=== PATIENT | male | born 1985 | race Caucasian/White ===

== ENCOUNTER 2019-12-04 17:10 | Emergency (ER) | payer OTHER ==
[2019-12-04] MEDS ORDERED: PROPARACAINE 0.5% OPHTH DROPS 15 ML BTL LEFT EYE STA (19:16)
[2019-12-04] MEDS ORDERED: ERYTHROMYCIN 5 MG/GM OPHTH OINT 1 GM TUBE BOTH EYES STA (19:17)
[2019-12-04] MEDS ORDERED: FLUORESCEIN STRIPS 1 MG STRIP LEFT EYE ONE (19:17)
--- NOTE | 2019-12-04 19:42 | ED ---
General Adult HPI - General Chief complaint: Eye Problems Stated complaint: [facility] - foreign body lt eye Time Seen by Provider: 12/04/19 19:11 Source: patient, RN notes reviewed Mode of arrival: ambulatory Limitations: no limitations - History of Present Illness Initial comments: 34-year-old male presents to the emergency department for a chief complaint of left corneal foreign body. Patient states he was using a steel grinder at work when he felt something go into his eye. States on the way here he thought he may have blanked this however there is still a white shamika on the center of his cornea. He states despite making his vision blurry. He denies any eye pain. Patient is not up-to-date on tetanus. He denies wearing contacts. Patient has no other complaints at this time including shortness of breath, chest pain, abdominal pain, nausea or vomiting, headache, or visual changes. - Related Data Allergies Allergy/AdvReac Type Severity Reaction Status Date / Time amoxicillin [From Augmentin] Allergy Rash/Hives Verified 12/04/19 17:16 clavulanic acid Allergy Rash/Hives Verified 12/04/19 17:16 [From Augmentin] sulfamethoxazole Allergy Rash/Hives Verified 12/04/19 17:17 [From Septra] trimethoprim [From Septra] Allergy Rash/Hives Verified 12/04/19 17:17 Review of Systems ROS Statement: Those systems with pertinent positive or pertinent negative responses have been documented in the HPI. ROS Other: All systems not noted in ROS Statement are negative. Past Medical History Past Medical History: Asthma History of Any Multi-Drug Resistant Organisms: None Reported Past Surgical History: Adenoidectomy, Tonsillectomy Past Psychological History: No Psychological Hx Reported Smoking Status: Never smoker Past Alcohol Use History: None Reported Past Drug Use History: None Reported General Exam Limitations: no limitations General appearance: alert, in no apparent distress Head exam: Present: atraumatic, normocephalic, normal inspection Eye exam: Present: PERRL, EOMI, other (There is a small white submillimeter abrasion noted to the center of the cornea overlying the pupil area. There is no foreign body under the eyelids when flipped. Negative Naida sign). Absent: scleral icterus, conjunctival injection, periorbital swelling ENT exam: Present: normal exam, normal oropharynx, mucous membranes moist, TM's normal bilaterally, normal external ear exam Neck exam: Present: normal inspection, full ROM. Absent: tenderness, meningismus, lymphadenopathy Respiratory exam: Present: normal lung sounds bilaterally. Absent: respiratory distress, wheezes, rales, rhonchi, stridor Cardiovascular Exam: Present: regular rate, normal rhythm, normal heart sounds. Absent: systolic murmur, diastolic murmur, rubs, gallop, clicks Neurological exam: Present: alert Course Vital Signs 12/04/19 17:14 Temperature 98.5 F Pulse Rate 90 Respiratory 17 Rate Blood Pressure 148/83 O2 Sat by Pulse 98 Oximetry Medical Decision Making - Medical Decision Making Patient has a small white area over the pupil that is submillimeter in size. I did numb his eye with proparacaine. I used a Q-tip and lightly brushed this area and removed the white foreign body without difficulty. I then flushed the eye. It was then stained with fluorescein stain and visualized with valderrama lamp. Small abrasion noted. There is no sign of rust ring. Negative Naida sign. Patient started on erythromycin ointment, no history of contacts. I did strongly recommend a tetanus shot however patient refused this stating the last shot he got hurt too much. Patient is aware of the risks of tetanus and the possibility of elva this through his eye including and suffering. Patient will follow up with ophthalmology. He will return for any worsening symptoms.I discussed this case with attending Dr. Mora who agrees with this assessment and treatment plan. Disposition Clinical Impression: Corneal foreign body Disposition: HOME SELF-CARE Condition: Good Instructions (If sedation given, give patient instructions): Eye Foreign Body (ED) Additional Instructions: Please use antibiotic ointment every 6 hours for 7 days. This was given to you while in the emergency room. Please follow-up with ophthalmology in one to 2 days for recheck. Return to the emergency Department with any worsening symptoms. Is patient prescribed a controlled substance at d/c from ED?: No Referrals: Gino Evans MD [Primary Care Provider] - 1-2 days Stephan Schafer MD [STAFF PHYSICIAN] - 1-2 days Time of Disposition: 19:42
[2019-12-04 20:30] VITALS: BP 139/81; PULSE 78; RESP 18; TEMP 98.4
== END 2019-12-04 20:26 | disposition home or self-care (01) ==
LOC: EC 17:10
DX: T15.02XA Foreign body in cornea, left eye, initial encounter (principal); Z88.0 Allergy status to penicillin; Z88.2 Allergy status to sulfonamides; Z53.29 Procedure and treatment not carried out because of patient's decision for other reasons; Y93.89 Activity, other specified; Y92.69 Other specified industrial and construction area as the place of occurrence of the external cause; Y99.0 Civilian activity done for income or pay
CPT/HCPCS: 65220; 99283

== ENCOUNTER 2022-06-12 08:57 | Emergency (ER) | payer SELFPAY ==
[2022-06-12] MEDS ORDERED: SODIUM CHLORIDE 0.9% 1,000 ML IV STA (09:40)
[2022-06-12] MEDS ORDERED: PANTOPRAZOLE 40 MG/10 ML VIAL IVP STA (09:40)
[2022-06-12 09:48] LABS: Basophils # (A) 0.1 k/uL (0-0.2); Basophils % (A) 1 %; Eosinophils # (A) 0.1 k/uL (0-0.7); Eosinophils % (A) 1 %; HCT 44.6 % (39.0-53.0); HGB 14.9 gm/dL (13.0-17.5); Lymphocytes # (A) 1.5 k/uL (1.0-4.8); Lymphocytes % (A) 17 %; MCH 26.7 pg (25.0-35.0); MCHC 33.3 g/dL (31.0-37.0); MCV 80.2 fL (80.0-100.0); Mean Platelet Volume 7.1; Monocytes # (A) 0.5 k/uL (0-1.0); Monocytes % (A) 5 %; Neutrophils # (A) 6.3 k/uL (1.3-7.7); Neutrophils % (A) 74 %; Platelet Count 265 k/uL (150-450); RBC 5.57 m/uL (4.30-5.90); RDW 12.4 % (11.5-15.5); WBC 8.5 k/uL (3.8-10.6)
--- NOTE | 2022-06-12 09:51 | ED ---
General Adult HPI - General Chief complaint: Nausea/Vomiting/Diarrhea Stated complaint: vomiting Time Seen by Provider: 06/12/22 09:10 Source: patient, RN notes reviewed, old records reviewed Mode of arrival: ambulatory Limitations: no limitations - History of Present Illness Initial comments: 36-year-old male with epigastric pain, nausea vomiting. Patient states that he is being treated for possible gastritis or ulcer by his primary care physician. He is unable to obtain follow-up as an outpatient. He states for the past 3 or 4 days he's had significant vomiting and has not been able to keep anything down. He denies drugs or alcohol. Denies diarrhea. No fever. No URI symptoms. He does have epigastric abdominal pain. - Related Data Previous Rx's Medication Instructions Recorded Ondansetron Odt [Zofran Odt] 4 mg PO Q8HR PRN #10 tab 06/12/22 Allergies Allergy/AdvReac Type Severity Reaction Status Date / Time amoxicillin [From Augmentin] Allergy Rash/Hives Verified 06/12/22 08:58 clavulanic acid Allergy Rash/Hives Verified 06/12/22 08:58 [From Augmentin] sulfamethoxazole Allergy Rash/Hives Verified 06/12/22 08:58 [From Septra] trimethoprim [From Septra] Allergy Rash/Hives Verified 06/12/22 08:58 Review of Systems ROS Statement: Those systems with pertinent positive or pertinent negative responses have been documented in the HPI. ROS Other: All systems not noted in ROS Statement are negative. Past Medical History Past Medical History: Asthma History of Any Multi-Drug Resistant Organisms: None Reported Past Surgical History: Adenoidectomy, Tonsillectomy Past Psychological History: No Psychological Hx Reported Smoking Status: Never smoker Past Alcohol Use History: None Reported Past Drug Use History: None Reported General Exam Limitations: no limitations General appearance: alert, in no apparent distress Head exam: Present: atraumatic, normocephalic Eye exam: Present: normal appearance, PERRL ENT exam: Present: mucous membranes dry Neck exam: Present: normal inspection. Absent: tenderness, meningismus Respiratory exam: Present: normal lung sounds bilaterally. Absent: respiratory distress Cardiovascular Exam: Present: regular rate, normal rhythm GI/Abdominal exam: Present: soft, tenderness (Epigastric). Absent: distended Extremities exam: Present: normal inspection, normal capillary refill. Absent: pedal edema Neurological exam: Present: alert, oriented X3, CN II-XII intact. Absent: motor sensory deficit Psychiatric exam: Present: normal affect, normal mood Skin exam: Present: warm, dry, intact. Absent: cyanosis, diaphoretic Course Vital Signs 06/12/22 06/12/22 08:58 10:00 Temperature 96.6 F L 98.7 F Pulse Rate 100 75 Respiratory 16 18 Rate Blood Pressure 131/85 138/88 O2 Sat by Pulse 99 98 Oximetry EKG Findings - EKG Comments: EKG Findings:: EKG: Sinus rhythm rate of 77, OH interval 140, QRS duration 90, QTC 412, no ST segment elevation. Medical Decision Making - Medical Decision Making 36-year-old male with nausea vomiting. Patient well-appearing with stable vitals. No right upper quadrant pain. Very minimal epigastric pain. Afebrile. Lab testing includes CBC, CMP are unremarkable, negative lipase, negative troponin. Patient feeling better after reevaluation. Given the duration of his symptoms he should follow-up with gastroenterology. Given referral. Given strict return parameters. - Lab Data Result diagrams: 06/12/22 09:42 06/12/22 09:42 Lab Results 06/12/22 06/12/22 06/12/22 Range/Units 09:30 09:42 09:42 WBC 8.5 (3.8-10.6) k/uL RBC 5.57 (4.30-5.90) m/uL Hgb 14.9 (13.0-17.5) gm/dL Hct 44.6 (39.0-53.0) % MCV 80.2 (80.0-100.0) fL MCH 26.7 (25.0-35.0) pg MCHC 33.3 (31.0-37.0) g/dL RDW 12.4 (11.5-15.5) % Plt Count 265 (150-450) k/uL MPV 7.1 Neutrophils % 74 % Lymphocytes % 17 % Monocytes % 5 % Eosinophils % 1 % Basophils % 1 % Neutrophils # 6.3 (1.3-7.7) k/uL Lymphocytes # 1.5 (1.0-4.8) k/uL Monocytes # 0.5 (0-1.0) k/uL Eosinophils # 0.1 (0-0.7) k/uL Basophils # 0.1 (0-0.2) k/uL Sodium 138 (137-145) mmol/L Potassium 4.0 (3.5-5.1) mmol/L Chloride 99 (98-107) mmol/L Carbon Dioxide 21 L (22-30) mmol/L Anion Gap 18 mmol/L BUN 16 (9-20) mg/dL Creatinine 0.73 (0.66-1.25) mg/dL Est GFR (CKD-EPI)AfAm >90 (>60 ml/min/1.73 sqM) Est GFR (CKD-EPI)NonAf >90 (>60 ml/min/1.73 sqM) Glucose 164 H (74-99) mg/dL Plasma Lactic Acid Ronald (0.7-2.0) mmol/L Calcium 9.9 (8.4-10.2) mg/dL Total Bilirubin 1.0 (0.2-1.3) mg/dL AST 20 (17-59) U/L ALT 21 (4-49) U/L Alkaline Phosphatase 67 (38-126) U/L Troponin I (0.000-0.034) ng/mL Total Protein 8.1 (6.3-8.2) g/dL Albumin 5.0 (3.5-5.0) g/dL Amylase 49 (30-110) U/L Lipase 98 (23-300) U/L Coronavirus (PCR) Not Detected (Not Detectd) 06/12/22 06/12/22 Range/Units 09:42 09:42 WBC (3.8-10.6) k/uL RBC (4.30-5.90) m/uL Hgb (13.0-17.5) gm/dL Hct (39.0-53.0) % MCV (80.0-100.0) fL MCH (25.0-35.0) pg MCHC (31.0-37.0) g/dL RDW (11.5-15.5) % Plt Count (150-450) k/uL MPV Neutrophils % % Lymphocytes % % Monocytes % % Eosinophils % % Basophils % % Neutrophils # (1.3-7.7) k/uL Lymphocytes # (1.0-4.8) k/uL Monocytes # (0-1.0) k/uL Eosinophils # (0-0.7) k/uL Basophils # (0-0.2) k/uL Sodium (137-145) mmol/L Potassium (3.5-5.1) mmol/L Chloride (98-107) mmol/L Carbon Dioxide (22-30) mmol/L Anion Gap mmol/L BUN (9-20) mg/dL Creatinine (0.66-1.25) mg/dL Est GFR (CKD-EPI)AfAm (>60 ml/min/1.73 sqM) Est GFR (CKD-EPI)NonAf (>60 ml/min/1.73 sqM) Glucose (74-99) mg/dL Plasma Lactic Acid Ronald 1.6 (0.7-2.0) mmol/L Calcium (8.4-10.2) mg/dL Total Bilirubin (0.2-1.3) mg/dL AST (17-59) U/L ALT (4-49) U/L Alkaline Phosphatase (38-126) U/L Troponin I <0.012 (0.000-0.034) ng/mL Total Protein (6.3-8.2) g/dL Albumin (3.5-5.0) g/dL Amylase (30-110) U/L Lipase (23-300) U/L Coronavirus (PCR) (Not Detectd) Disposition Clinical Impression: Nausea and vomiting Disposition: HOME SELF-CARE Condition: Good Instructions (If sedation given, give patient instructions): Acute Nausea and Vomiting (ED) Additional Instructions: Please continue taking omeprazole. Prescriptions: Ondansetron Odt [Zofran Odt] 4 mg PO Q8HR PRN #10 tab PRN Reason: Vomiting Is patient prescribed a controlled substance at d/c from ED?: No Referrals: Gino Evans MD [Primary Care Provider] - 1-2 days Julia Busch MD [STAFF PHYSICIAN] - 1-2 days Time of Disposition: 11:08
[2022-06-12 10:03] VITALS: RESP 18; TEMP 98.7
[2022-06-12 10:46] LABS: ALT 21 U/L (4-49); AST 20 U/L (17-59); African American GFR (CKD) >90 (>60 ml/min/1.73 sqM); Alkaline Phosphatase 67 U/L (38-126); Amylase 49 U/L (30-110); Anion Gap 18 mmol/L; Blood Urea Nitrogen 16 mg/dL (9-20); Calcium 9.9 mg/dL (8.4-10.2); Carbon Dioxide 21 mmol/L (22-30); Chloride 99 mmol/L (98-107); Glucose 164 mg/dL (74-99); Lipase 98 U/L (23-300); Non-African American GFR(CKD) >90 (>60 ml/min/1.73 sqM); Sodium 138 mmol/L (137-145); Total Protein 8.1 g/dL (6.3-8.2)
[2022-06-12 11:35] VITALS: BP 132/84; PULSE 85
== END 2022-06-12 11:22 | disposition home or self-care (01) ==
LOC: EC 08:57
DX: R11.2 Nausea with vomiting, unspecified (principal); J45.909 Unspecified asthma, uncomplicated; Z88.0 Allergy status to penicillin; Z88.1 Allergy status to other antibiotic agents; Z88.2 Allergy status to sulfonamides; Z20.822 Contact with and (suspected) exposure to COVID-19
CPT/HCPCS: 96361 ×2; 96374 ×2; 99284 ×2; 36415; 93005; 80053; 82150; 83605; 83690; 84484; 85025; 87635; C9113